=== PATIENT | female | born 1955 | race Caucasian/White ===

== ENCOUNTER → 2016-07-26 | Outpatient (CLI) | payer BC ==
--- NOTE | 2016-07-26 09:42 | DIAGNOSTIC IMAGING REPORT ---
(BARIUM SWALLOW) ESOPHAGUS CLINICAL HISTORY: K21.9 Gastroesophageal reflux [id number] COMPARISON STUDY: None. FLUOROSCOPY TIME: 1 minute.. FINDINGS: 22 fluoroscopic spot images were submitted. The patient swallowed barium without difficulty. The contours of the hypopharynx are within normal limits. The esophagus is normal in course, caliber, motility. No gastroesophageal reflux. No significant hiatus hernia. The barium tablet passed without difficulty. IMPRESSION: Unremarkable barium swallow. Electronically signed by: Raudel Roberts M.D. 07/26/2016 9:40 AM Dictated Date/Time: 07/26/2016 9:38 AM
== END | disposition home or self-care (01) ==
LOC: C.RAD 08:52
PROVIDERS: ATTEND Surgery
DX: K21.9 Gastro-esophageal reflux disease without esophagitis (principal)

== ENCOUNTER → 2017-03-14 | Outpatient (CLI) | payer BC ==
--- NOTE | 2017-03-15 15:32 | MAMMOGRAPHY REPORT ---
BILATERAL DIGITAL SCREENING MAMMOGRAM TOMOSYNTHESIS WITH CAD: 03/14/2017 CLINICAL HISTORY: Routine screening. Patient has no complaints. TECHNIQUE: Breast tomosynthesis in addition to standard 2D mammography was performed. Current study was also evaluated with a Computer Aided Detection (CAD) system. COMPARISON: Comparison is made to exams dated: 03/13/2016 mammogram, 03/08/2015 mammogram, 08/18/2013 ma mmogram - [facility], 03/06/2012 mammogram, 03/12/2011 mammogram, and 03/08/2010 mammo gram. BREAST COMPOSITION: The tissue of both breasts is almost entirely fatty. FINDINGS: No suspicious masses, calcifications, or areas of architectural distortion are noted in ei ther breast. There has been no significant interval change compared to prior exams. Scattered bilater al benign-appearing calcifications are not significantly changed. IMPRESSION: ACR BI-RADS CATEGORY 2: BENIGN There is no mammographic evidence of malignancy. A 1 year screening mammogram is recommended. The pa tient will receive written notification of the results. Approximately 10% of breast cancers are not detected with mammography. A negative mammographic report should not delay biopsy if a clinically suggestive mass is present. Marily Bourgeois M.D. /:03/14/2017 16:22:47 Retail Salesperson: Abby PLAZA(R)(M), [facility] letter sent: Normal 1/2 BI-RADS Code: ACR BI-RADS Category 2: Benign
== END | disposition home or self-care (01) ==
LOC: C.MAMM 14:43
PROVIDERS: ATTEND Internal Medicine
DX: Z12.31 Encounter for screening mammogram for malignant neoplasm of breast (principal)

== ENCOUNTER → 2017-04-17 | Outpatient (CLI) | payer BC ==
--- NOTE | 2017-04-17 14:55 | DIAGNOSTIC IMAGING REPORT ---
RIGHT THUMB 3 VIEWS HISTORY: M25.531 Wrist pain, acute, right FOOSH injury, having base of thumb pain COMPARISON: None. FINDINGS: There is no fracture or dislocation. Soft tissue swelling at the base of the thumb. Moderate osteoarthritis at the first carpometacarpal joint. No radiopaque foreign bodies. IMPRESSION: No fracture or dislocation within the right thumb. Electronically signed by: Raudel Roberts M.D. 04/17/2017 2:54 PM Dictated Date/Time: 04/17/2017 2:52 PM
--- NOTE | 2017-04-17 15:03 | DIAGNOSTIC IMAGING REPORT ---
R ELBOW MIN 3 VIEWS ROUTINE CLINICAL HISTORY: Right elbow pain following fall. COMPARISON: None FINDINGS: Anterior fat pad is slightly prominent. This suggests a right elbow joint effusion. There is an acute minimally displaced right radial neck fracture. No additional fractures are identified. IMPRESSION: Acute minimally displaced right radial neck fracture. Electronically signed by: Jet Marinelli M.D. 04/17/2017 3:02 PM Dictated Date/Time: 04/17/2017 3:01 PM
--- NOTE | 2017-04-17 15:05 | DIAGNOSTIC IMAGING REPORT ---
R WRIST MIN 3 VIEWS ROUTINE CLINICAL HISTORY: Right wrist pain following fall. COMPARISON: None FINDINGS: Alignment of the right carpal bones is anatomic. No acute fracture is identified. There is mild osteoarthritis of the radiocarpal articulation and moderate osteoarthritis of the right first carpometacarpal articulation. IMPRESSION: No acute fracture or dislocation of the right wrist. Electronically signed by: Jet Marinelli M.D. 04/17/2017 3:03 PM Dictated Date/Time: 04/17/2017 3:02 PM
== END | disposition home or self-care (01) ==
LOC: C.RADBC 14:27
PROVIDERS: ATTEND Physician Assistant
DX: M25.531 Pain in right wrist (principal); M79.641 Pain in right hand; S52.131A Displaced fracture of neck of right radius, initial encounter for closed fracture; W19.XXXA Unspecified fall, initial encounter

== ENCOUNTER → 2017-07-01 | Outpatient (CLI) | payer BC | END | disposition home or self-care (01) | LOC: C.MAMM 14:32 | PROVIDERS: ATTEND Nurse Practitioner Adult Health | DX: E55.9 Vitamin D deficiency, unspecified (principal); S52.131A Displaced fracture of neck of right radius, initial encounter for closed fracture; X58.XXXA Exposure to other specified factors, initial encounter ==

== ENCOUNTER → 2017-09-14 | Outpatient (CLI) | payer BC ==
[2017-09-14 13:26] LABS: BASO % 0.2 %; BASO ABS # 0.01 K/uL (0-0.2); EOS % 2.4 %; EOS ABS # 0.12 K/uL (0-0.5); HEMATOCRIT 39.7 % (37-47); LYMPH % 33.4 %; MEAN CELL VOLUME 85.6 fL (80-100); MEAN CORPUSCULAR HEMOGLOBIN 30.2 pg (25-34); MEAN CORPUSCULAR HGB CONC 35.3 g/dl (32-36); MEAN PLATELET VOLUME 9.3 fL (7.4-10.4); MONO % 7.3 %; MONO ABS # 0.37 K/uL (0.11-0.59); NEUT % 56.7 %; NEUT ABS # 2.89 K/uL (1.4-6.5); PLATELET COUNT 267 K/uL (130-400); RED CELL DISTRIBUTION WIDTH CV 13.5 % (11.5-14.5); RED CELL DISTRIBUTION WIDTH SD 41.6 fL (36.4-46.3); WHITE BLOOD COUNT 5.09 K/uL (4.8-10.8)
[2017-09-14 13:39] LABS: ALBUMIN 3.7 gm/dl (3.4-5.0); ALT/SGPT 24 U/L (12-78); AST/SGOT 14 U/L (15-37); BLOOD UREA NITROGEN 8 mg/dl (7-18); CALCIUM 9.1 mg/dl (8.5-10.1); CARBON DIOXIDE 26 mmol/L (21-32); CREATININE 0.82 mg/dl (0.60-1.20); GLUCOSE 93 mg/dl (70-99); LIPASE 123 U/L (73-393); SODIUM 139 mmol/L (136-145)
[2017-09-14 13:42] LABS: ALKALINE PHOSPHATASE 151 U/L (45-117); TOTAL PROTEIN 7.6 gm/dl (6.4-8.2)
== END | disposition home or self-care (01) ==
LOC: C.LAB1850 12:02
PROVIDERS: ATTEND Internal Medicine
DX: N39.41 Urge incontinence (principal); R10.84 Generalized abdominal pain; R10.811 Right upper quadrant abdominal tenderness

== ENCOUNTER → 2017-09-16 | Outpatient (CLI) | payer BC ==
[2017-09-16 12:45] LABS: ALBUMIN 3.7 gm/dl (3.4-5.0); TOTAL PROTEIN 7.5 gm/dl (6.4-8.2)
== END | disposition home or self-care (01) ==
LOC: C.LAB1850 10:03
PROVIDERS: ATTEND Nurse Practitioner Adult Health
DX: R74.8 Abnormal levels of other serum enzymes (principal); R73.01 Impaired fasting glucose; E55.9 Vitamin D deficiency, unspecified

== ENCOUNTER → 2017-09-19 | Outpatient (CLI) | payer BC ==
--- NOTE | 2017-09-19 08:41 | DIAGNOSTIC IMAGING REPORT ---
ABDOMINAL ULTRASOUND COMPLETE HISTORY: R10.84 Generalized abdominal pain of unknown [id number] Rig. COMPARISON: None. FINDINGS: Pancreas: The pancreatic tail is obscured by overlying bowel gas. The remaining portions of the pancreas are within normal limits. Liver: The liver is echogenic consistent with fatty change. Gallbladder: The gallbladder is surgically absent. CBD: 6 mm. Kidneys: The right kidney measures 11.0 cm and the left kidney measures 11.2 cm. Small cystic areas within the renal sinuses suggestive of peripelvic cysts. Spleen: Normal in size. Aorta: Normal in caliber. IVC: Patent. IMPRESSION: 1. Hepatic steatosis. 2. Prior cholecystectomy. Electronically signed by: Raudel Roberts M.D. 09/19/2017 8:40 AM Dictated Date/Time: 09/19/2017 8:36 AM
== END | disposition home or self-care (01) ==
LOC: C.ULTRBC 07:45
PROVIDERS: ATTEND Internal Medicine
DX: R17 Unspecified jaundice (principal); R10.84 Generalized abdominal pain; R10.811 Right upper quadrant abdominal tenderness; R74.8 Abnormal levels of other serum enzymes; K76.0 Fatty (change of) liver, not elsewhere classified

== ENCOUNTER → 2017-10-10 | Outpatient (CLI) | payer BC | END | disposition home or self-care (01) | LOC: C.LAB1850 08:59 | PROVIDERS: ATTEND Nurse Practitioner Adult Health | DX: R10.84 Generalized abdominal pain (principal); R74.8 Abnormal levels of other serum enzymes; R31.0 Gross hematuria ==

== ENCOUNTER 2018-12-16 07:51 | Inpatient (IN) ==
--- NOTE | 2018-11-17 15:59 | PAT Medication Instructions ---
Medication Instructions Date of Service November 17, 2018 Home Medications albuterol sulfate [ProAir HFA] 1 puff INHALATION Q6H PRN amlodipine 5 mg PO HS atorvastatin 10 mg PO HS cetirizine [Zyrtec] 10 mg PO HS cholecalciferol (vitamin D3) 4,000 unit PO QAM cyanocobalamin (vitamin B-12) 1,000 mcg PO QAM [Breo Ellipta] 1 inh INHALATION QAM ibuprofen [Advil] 200 mg PO QID PRN montelukast [Singulair] 10 mg PO PM omega 0-vfh-djg-fish oil [Fish Oil] 1 dose PO QAM omeprazole 20 mg PO QAM ranitidine HCl [Zantac] 2 tab PO HS L.acidoph-B.long-L.plant-B.lac 1 tab PO QAM coenzyme Q10 [CoQ-10] 100 mg PO HS doxycycline hyclate 100 mg PO BID prednisone 20 mg PO DIRECTED Continue as directed prednisone 20 mg PO DIRECTED ASK your surgeon for instructions ibuprofen [Advil] 200 mg PO QID PRN STOP taking 2 weeks before surgery omega 7-ftj-ajx-fish oil [Fish Oil] 1 dose PO QAM coenzyme Q10 [CoQ-10] 100 mg PO HS DO NOT take the morning of surgery cholecalciferol (vitamin D3) 4,000 unit PO QAM cyanocobalamin (vitamin B-12) 1,000 mcg PO QAM L.acidoph-B.long-L.plant-B.lac 1 tab PO QAM Take morning of surgery With a small sip of water, OTHERWISE NOTHING TO EAT OR DRINK AFTER MIDNIGHT: albuterol sulfate [ProAir HFA] 1 puff INHALATION Q6H PRN (if needed, and bring with you to the hospital) [Breo Ellipta] 1 inh INHALATION QAM omeprazole 20 mg PO QAM doxycycline hyclate 100 mg PO BID Take evening before surgery albuterol sulfate [ProAir HFA] 1 puff INHALATION Q6H PRN (if needed) amlodipine 5 mg PO HS atorvastatin 10 mg PO HS cetirizine [Zyrtec] 10 mg PO HS montelukast [Singulair] 10 mg PO PM ranitidine HCl [Zantac] 2 tab PO HS doxycycline hyclate 100 mg PO BID Other Notes If you have any questions please call us at [phone] or [phone] or [phone] or [phone]
--- NOTE | 2018-11-18 08:47 | Anesthesiology Consultation ---
Date of Service November 18, 2018 Assessment & Plan (1) Encounter for pre-operative examination: Chart Review Chart Review: Acceptable Risk for Surgery and Patient seen in Pre Admission Testing Teaching & Discussion Instructed NPO after midnight before surgery, except medications with 15 cc of water. Medication instructions provided according to the PAT guidelines. History Surgery Operation Date: 12/16/18 07:00 Proposed Procedures p Left Total Knee Replacement - He Nielsen MD Height/Weight Height: 5 ft 4 in Weight: 116.8 kg Allergies Allergy/AdvReac Type Severity Reaction Status Date / Time Penicillins Allergy Unknown Verified 11/12/18 08:08 erythromycin base AdvReac Dizziness Verified 11/12/18 08:08 Medications Home Medications Medication Instructions Recorded Confirmed Last Taken albuterol sulfate [ProAir HFA] 1 puff INHALATION Q6H PRN 09/09/18 11/12/18 Unknown amlodipine 5 mg PO HS 09/09/18 11/12/18 Unknown atorvastatin 10 mg PO HS 09/09/18 11/12/18 Unknown cetirizine [Zyrtec] 10 mg PO HS 09/09/18 11/12/18 Unknown cholecalciferol (vitamin D3) 4,000 unit PO QAM 09/09/18 11/12/18 Unknown [Vitamin D3] cyanocobalamin (vitamin B-12) 1,000 mcg PO QAM 09/09/18 11/12/18 Unknown [Vitamin B-12] fluticasone furoate-vilanterol 1 inh INHALATION QAM 09/09/18 11/12/18 Unknown [Breo Ellipta] ibuprofen [Advil] 200 mg PO QID PRN 09/09/18 11/12/18 Unknown montelukast [Singulair] 10 mg PO PM 09/09/18 11/12/18 Unknown omega 9-zib-wmk-fish oil [Fish Oil] 1 dose PO QAM 09/09/18 11/12/18 Unknown omeprazole 20 mg PO QAM 09/09/18 11/12/18 Unknown ranitidine HCl [Zantac] 2 tab PO HS 09/09/18 11/12/18 Unknown L.acidoph-B.long-L.plant-B.lac 1 tab PO QAM 11/12/18 11/12/18 Unknown [Probiotic Acidophilus Beads] coenzyme Q10 [CoQ-10] 100 mg PO HS 11/12/18 11/12/18 Unknown doxycycline hyclate 100 mg PO BID 11/12/18 11/12/18 Unknown prednisone 20 mg PO DIRECTED 11/12/18 11/12/18 Unknown Past Medical History Medical History Allergy-induced asthma RARELY USES PRN INH Bronchitis Has had for ~10 days, went to [facility]. On ABX and prednisione, finishing course tomorrow 11/19 - still has non productive cough. Pt advised to f/u with PCP if not improved, and f/u with surgeon if not resolved prior to surgery. Chronic back pain GERD (gastroesophageal reflux disease) Gilbert's syndrome Hyperlipidemia Hypertension Morbid obesity Osteoarthritis Sleep apnea Recent diagnosis, sleep study done 10/2018. Patient not yet set up with CPAP, PCP is following up. Exercise / Class Metabolic Activity III < 4 Walking/Shop/Light housework (+SOB (mild) with stairs, denies CP) Past Family History Family History Mother Family history of diabetes mellitus Uncle Family history of diabetes mellitus Past Surgical History Surgical History History of anesthesia reaction -SLOW TO WAKE -REPORTS SHE WOKE UP DURING HYSTERECTOMY History of appendectomy History of cholecystectomy History of colonoscopy History of dilatation and curettage History of esophagogastroduodenoscopy (EGD) History of hysterectomy ovaries remain History of total knee replacement RT Past Anesthesia History Other Reports being "slow to wake" but no h/o re-intubation or unanticipated admission. Had epidural and sedation with hysterectomy and has h/o awareness. History of PONV No Hx of PONV and Hx of Motion Sickness Social History Smoking Status: Never smoker Do You Dip or Chew Tobacco: No Hx Alcohol Use: No Hx Substance Use: No substance use type: does not use Review of Systems Pt denies any recent chest pain, shortness of breath, palpitations. +Bronchitis, currently starting to resolve, has non-productive cough, on ABX and steroid. Physical Exam Vital Signs BP: 113/77 P: 72bpm SPO2: 98% RA T: 98.7 F R: 18 Constitutional + obese ENMT Mouth: + dental restorations (many throughout mouth) and + small oral opening; no chipped teeth and no loose teeth Thyromental Distance: < 3.5 Finger Breadths (3) Mallampati Class: III Neck + thick neck; neck extension not limited Respiratory normal respiratory effort and + cough Auscultation: lungs clear to auscultation bilaterally Cardiovascular Rate/Rhythm: regular rate and regular rhythm Heart Sounds: no murmur Vessels: no carotid bruit Extremities: no edema Testing Electrocardiogram Date: 11/18/18 Findings: + NSR @ (69) Chest X-Ray Date: 11/18/18 IMPRESSION: Subsegmental atelectasis/scar within the lingula. Otherwise no acute findings. Laboratory Results 11/18/18 09:01 11/18/18 09:01 Blood Type A Negative 11/18/18 09: Antibody Screen NEGATIVE 11/18/18 09: PT 10.0 Seconds (9.0-12.0) 11/18/18 09: INR 1.0 (0.9-1.1) 11/18/18 09: APTT 21.8 Seconds (21.0-31.0) 11/18/18 09:01
--- NOTE | 2018-11-18 09:28 | XRay Report ---
XR chest Pre-admission PA/Lat CLINICAL HISTORY: Preoperative chest COMPARISON STUDY: 11/09/2015 FINDINGS: The heart is mildly enlarged. There is aortic tortuosity/ectasia. There are areas of linear scarring/atelectasis within the lingula. There is no failure.[ IMPRESSION: Subsegmental atelectasis/scar within the lingula. Otherwise no acute findings. Electronically signed by: Torrey Dalton M.D. 11/18/2018 9:27 AM
[2018-11-18 10:52] LABS: Hematocrit (blood only) 38.4 % (37-47); Hemoglobin 13.2 g/dL (12.0-16.0); Mean Corpuscular Hgb Conc 34.4 g/dL (32-36); Mean Corpuscular Volume 86.3 fL (80-100); Mean Platelet Volume 9.1 fL (7.4-10.4); Platelet Count 304 K/uL (130-400); RDW Coefficient of Variation 13.8 % (11.5-14.5); Red Blood Count 4.45 M/uL (4.2-5.4)
[2018-11-18 11:01] LABS: Blood Urea Nitrogen 16 mg/dl (7-18); C Reactive Protein < 0.29 mg/dl (0-0.29); Calcium 8.7 mg/dl (8.5-10.1); Carbon Dioxide 29 mmol/L (21-32); Chloride 110 mmol/L (98-107); Est GFR (African American) 81.6; Est GFR (Non-African American) 70.4; Glucose 80 mg/dl (70-99); Potassium 3.8 mmol/L (3.5-5.1); Sodium 143 mmol/L (136-145)
[2018-11-18 11:09] LABS: Partial Thromboplastin Ratio 0.8; Partial Thromboplastin Time 21.8 Seconds (21.0-31.0)
[2018-11-18 11:16] LABS: Basophils # (auto) 0.02 K/uL (0-0.2); Basophils % (auto) 0.3 %; Eosinophils # (auto) 0.07 K/uL (0-0.5); Eosinophils % (auto) 0.9 %; Immature Granulocytes # (auto) 0.07 K/uL (0.00-0.02); Immature Granulocytes % (auto) 0.9 %; Lymphocytes # (auto) 4.12 K/uL (1.2-3.4); Lymphocytes % (auto) 52.2 %; Monocytes # (auto) 0.61 K/uL (0.11-0.59); Monocytes % (auto) 7.7 %; Neutrophils # (auto) 3.01 K/uL (1.4-6.5)
--- NOTE | 2018-12-11 22:25 | History and Physical Report ---
DATE OF ADMISSION: 12/16/2018 CHIEF COMPLAINT: Left knee pain and discomfort. HISTORY OF PRESENT ILLNESS: She is a 63-year-old female who presents for surgical treatment of her left knee. We had actually scheduled her for knee replacement in the past, but it got rescheduled largely related to a weight issue. She has been to extensive conservative treatment in respect to her left knee. She has been through diabetic counseling and weight loss attempts. She has struggled with this due to her mobility issues. She is limited by her left knee pain. It is global pain. The more she walks, the more it hurts. She limps more and more as the day goes on. She has nighttime pain. She would like to proceed with surgical treatment. Of note, the patient had right knee replacement done in [place] in 2012. PAST MEDICAL HISTORY: Significant for, 1. Elevated cholesterol. 2. Hypertension. 3. Allergy induced asthma. 4. Sleep apnea. 5. Gastroesophageal reflux disease. 6. Obesity with BMI 44. 7. Low back pain/sciatica. PAST SURGICAL HISTORY: 1. Hysterectomy in 1997. 2. Cholecystectomy. 3. Right knee replacement done in [place] in 2012. ALLERGIES: MYCINS WHICH CAUSED HER TO BE "WOOZY." CURRENT MEDICINES: Include, 1. Vitamin D. 2. Fish oil. 3. Vitamin B12. 4. Probiotics. 5. Omeprazole. 6. Breo. 7. Zyrtec. 8. Singulair. 9. Atorvastatin. 10. Zantac. 11. Coenzyme Q. 12. Amlodipine. SOCIAL HISTORY: This patient is a 63-year-old female who lives by herself. She does not smoke. FAMILY HISTORY: Noncontributory. REVIEW OF HISTORY: Negative for diabetes, neurologic problems, vascular problems or bleeding disorders. No chest pain or shortness of breath. No history of deep venous thrombosis or pulmonary embolism. PHYSICAL EXAMINATION: GENERAL: Reveals a pleasant middle-aged female, looks to be in reasonably good health. HEENT: Benign. NECK: Supple. No lymphadenopathy. LUNGS: Clear to auscultation. HEART: Regular rate and rhythm. ABDOMEN: Soft, nontender and nondistended. EXTREMITIES: Grossly neurovascularly intact except as follows. Examination of the left knee reveals the patient walks with antalgic gait. She limps on the left side. She has got varus alignment to her knee. Moderate soft tissue envelope. She is tender over the medial joint line. Range of motion is 5 degrees short of full extension and 120 degrees of flexion. No instability. No pain with hip motion. X-RAYS: X-rays of the left knee reviewed. Show advanced medial compartment DJD. She has complete loss of medial joint space. She has subchondral sclerosis. She has osteophytes of medial femoral condyle and medial tibial plateau. The right knee replacement looks to be in pretty good position. ASSESSMENT: This patient is a 63-year-old female 6 weeks out from right knee replacement done in [place] with advanced left knee degenerative joint disease. She has failed conservative treatment and would like to have her left knee replaced. PLAN: The patient will be taken to the operating room for a left total knee replacement. The risks and benefits of this procedure were explained to the patient including but not limited to deep venous thrombosis, pulmonary embolism, , infection, neurological injury, vascular injury, bleeding problem, pain, limited range of motion, stiffness, failure to relieve symptoms, incomplete relief of symptoms, need for further surgery in the future, fracture, leg length inequality, nerve palsy, etc. The patient understands and desires to proceed. Informed consent was obtained. As far as discharge plans, she is a little bit up in the air what to do. She went to rehab when she was in [place] and had this done 6 years ago. We will see how therapy goes postoperatively. She lives by herself, so she will certainly need some help.
[~2018-12-16 07:51] MED LIST: ACETAMINOPHEN 500 MG TAB PO SCH; BUPIVACAINE 0.5 % 5 MG/1 ML PF 10ML VIAL ONE; BUPIVACAINE LIPOSOME/PF 266 MG, BUPIVACAINE/EPINEPHRINE 50 ML, SODIUM CHLORIDE 0.9% 30 ... INFIL SCH; CEFAZOLIN 2000MG 2,000 MG/15 ML SYR IV SCH; FAMOTIDINE 20 MG TAB PO SCH; GABAPENTIN 300 MG x 2 PO SCH; LR 500ML BOLUS, THEN 15ML/HR IV SCH; LR 60ML/HR IV SCH; METOCLOPRAMIDE HCL 10 MG TABLET PO SCH; ROPIVACAINE 0.5% 5 MG/ML 30 ML VIAL ONE; SCOPOLAMINE 1.5 MG TDSY TD SCH; TRANEXAMIC ACID 1,000 MG **IV Intra-op IV SCH; [UNRECOGNIZED DRUG - REMARK] SCH
[2018-12-16] MEDS ORDERED: fentaNYL citrate 100 MCG/2 ML VIAL ONE (08:14)
[2018-12-16] MEDS ORDERED: MIDAZOLAM HCL 1 MG/ML 2ML VIAL ONE ×3 (08:14→11:17)
--- NOTE | 2018-12-16 08:42 | History & Physical Bridge Note ---
Date of Service December 16, 2018 History & Physical Bridge Note I have examined the patient, reviewed the History & Physical and in the interval since the performance of the History & Physical I have noted the following changes of clinical significance: no changes noted
[2018-12-16] MEDS ORDERED: BACITRACIN INJ 50,000 UNIT VIAL ONE (09:28)
[2018-12-16] MEDS ORDERED: EPINEPHrine INJ 1 MG/ML AMP ONE (09:28)
[2018-12-16] MEDS ORDERED: SODIUM CHLORIDE 0.9% PF 50 ML VIAL ONE (09:28)
[2018-12-16] MEDS ORDERED: BUPIVACAINE 0.25% 30 ML VIAL ONE (09:28)
[2018-12-16] MEDS ORDERED: BUPIVACAINE LIPOSOME 1.3% 266 MG/20 ML VIAL ONE (09:28)
[2018-12-16] MEDS ORDERED: ePHEDrine sulfate 50 MG/ML AMP IV PRN (09:36)
[2018-12-16] MEDS ORDERED: ATROPINE SULFATE 0.1 MG/ML 10ML SYR IV PRN (09:36)
[2018-12-16] MEDS ORDERED: ONDANSETRON INJ 2 MG/ML 2 ML VIAL IV PRN ×2 (09:36→13:47)
[2018-12-16] MEDS ORDERED: fentaNYL citrate 100 MCG/2 ML VIAL IV PRN (09:36)
--- NOTE | 2018-12-16 12:17 | Post Operative Brief Note ---
Immediate Post Op Note v1 Date of Surgery December 16, 2018 Pre & Post Diagnosis Operation Date: 12/16/18 10:40 Pre-Op Diagnosis: Left Knee Degenerative Joint Disease Post-Op Diagnosis: Left Knee Degenerative Joint Disease Procedure Operation Date: 12/16/18 10:40 Actual Procedures p Left Total Knee Arthroplasty (Left) - He Nielsen MD Surgeon He Nielsen MD [employer] Johan, PAC Estimated Blood Loss 50 Findings Consistent with Post-Op Diagnosis Fluids 1500 cc Specimens Left Knee Drains Aparicio Catheter (16 danish) Anesthesia Type Spinal MAC Complications none Disposition Accompanied Patient To Recovery: No Disposition: Recovery Room
--- NOTE | 2018-12-16 12:51 | XRay Report ---
XR knee LT 2V routine CLINICAL HISTORY: 63 years-old Female presenting with Surgical Post Op. TECHNIQUE: Frontal and crosstable lateral views of the left knee were obtained. COMPARISON: 04/03/2018. FINDINGS: Interval postsurgical change of total left knee arthroplasty with patellar resurfacing. Expected intr a-articular and soft tissue emphysema. Overlying skin lupillo. No periprosthetic fracture or lucency. No malalignment. Suspected underlying osteopenia. IMPRESSION: Expected postsurgical appearance status post total left knee arthroplasty with patellar resurfacing. Electronically signed by: Isma Wilson M.D. 12/16/2018 12:49 PM
--- NOTE | 2018-12-16 12:58 | Anesthesiology Progress Note ---
Date of Service December 16, 2018 Anesthesia Post Procedure Vital Signs Vital Signs: Temp Pulse Resp BP Pulse Ox 12/16/18 12:45 75 14 125/66 100 12/16/18 12:35 72 16 117/64 100 12/16/18 12:26 97.5 F L 75 19 125/76 100 12/16/18 08:25 98.4 F 73 17 138/82 97 Pain Intensity Left Knee: Pain Intensity: 0 Transfer of Care Handoff Completed per policy Notes Mental Status: alert / awake / arousable and participated in evaluation Patient Amnestic to Procedure: Yes Nausea / Vomiting: adequately controlled Pain: adequately controlled Airway Patency, RR, SpO2: stable & adequate BP & HR: stable & adequate Hydration State: stable & adequate Neuraxial Anesthesia: was administered and sensory block is resolving Anesthetic Complications: no major complications apparent and Pt Satisfied with anesthetic care
[2018-12-16] MEDS ORDERED: ALUMINUM/MAGNESIUM SUSP 30 ML UDC PO PRN (13:47)
[2018-12-16] MEDS ORDERED: METOCLOPRAMIDE HCL INJ 5 MG/ML 2 ML VIAL IV PRN (13:47)
[2018-12-16] MEDS ORDERED: DiphenhydrAMINE HCL 50 MG/ML VIAL IV PRN (13:47)
[2018-12-16] MEDS ORDERED: HYDROmorphone INJ 0.5 MG/0.5 ML SYR IV PRN (13:47)
[2018-12-16] MEDS ORDERED: MAGNESIUM HYDROXIDE SUSP 30 ML UDC PO PRN (13:47)
[2018-12-16] MEDS ORDERED: BISACODYL 10 MG SUPP PR PRN (13:47)
[2018-12-16] MEDS ORDERED: NALOXONE HCL 0.4 MG/1 ML VIAL/CARP IV PRN (13:47)
[2018-12-16] MEDS ORDERED: ALBUTEROL HFA 8 GM INHALER INH PRN (14:15)
[2018-12-16] MEDS: ACETAMINOPHEN 500 MG TAB PO SCH ×2 (15:28→21:23)
[2018-12-16] MEDS: CHECK SCOPOLAMINE PATCH PLACEMENT SCH (15:28)
[2018-12-16] MEDS: KETOROLAC 30 MG/ML VIAL IV SCH ×2 (15:28→21:23)
--- NOTE | 2018-12-16 16:33 | Progress Note ---
DATE: 12/16/2018 SUBJECTIVE: A 63-year-old female postop from a left knee replacement. She is just starting to have some pain in her leg. Denies any chest pain or shortness of breath. Not feeling dizzy or lightheaded. OBJECTIVE: VITAL SIGNS: Temperature 36.3. Vital signs stable. GENERAL: Physical examination shows a pleasant, middle-aged female. She is lying in bed. Just looks a little bit groggy from the surgery. LUNGS: Clear to auscultation. HEART: Regular rate and rhythm. ABDOMEN: Soft, nontender, nondistended. EXTREMITIES: Grossly neurovascularly intact except as follows: Examination of the left lower extremity reveals the leg to be well aligned. She can dorsiflex and plantarflex her foot appropriately. She is neurologically intact. She has got brisk capillary refill. X-RAYS: X-rays of the left knee from recovery room reviewed. It shows left cemented posterior stabilized total knee arthroplasty. Components looked to be in good position. No signs of problems. ASSESSMENT: A 63-year-old female postop from a left knee replacement, doing pretty well. Pain is reasonably well controlled. Just starting to have pain in her leg. She is neurologically intact. PLAN: 1. DVT prophylaxis including thigh-high TEDs, SCDs, and aspirin twice a day. 2. PT/OT. Weight bear as tolerated. Left total knee protocol. 3. Pain control, doing okay with current pain regimen. She is just starting to have more pain. We will have to adjust meds as needed. 4. IV antibiotics x24 hours. 5. Discharge plans: She is hoping to be discharged to home, but she lives alone. I think it is highly likely she is going to need a rehab or [facility] stay. We will see how she does over the next 24-48 hours.
[2018-12-16] MEDS: ASCORBIC ACID 500 MG TAB PO SCH (18:00)
[2018-12-16] MEDS: FERROUS GLUCONATE 324 MG TAB PO SCH (18:00)
[2018-12-16] MEDS: SODIUM CHLORIDE 0.9% 1000ML 1,000 ML IV SCH (18:05)
[2018-12-16] MEDS: CEFAZOLIN 2000MG 2,000 MG/15 ML SYR IV SCH (18:05)
[2018-12-16] MEDS ORDERED: TRANEXAMIC ACID 1,000 MG in 0.9 % SODIUM CHLORIDE 100 ML IV SCH (18:30)
[2018-12-16] MEDS: TAPENTADOL HCL ER 50 MG TABCR PO SCH (20:15)
[2018-12-16] MEDS: AMLODIPINE BESYLATE 5 MG TAB PO SCH (20:15)
[2018-12-16] MEDS: ASPIRIN 81 MG ECTAB PO SCH (20:15)
[2018-12-16] MEDS: DOCUSATE SODIUM 100 MG CAP PO SCH (20:15)
[2018-12-16] MEDS: MONTELUKAST SODIUM 10 MG TABLET PO SCH (20:16)
[2018-12-16] MEDS: SENNA 8.6 MG TAB PO SCH (20:16)
[2018-12-16] MEDS: ATORVASTATIN 10 MG TAB PO SCH (20:16)
[2018-12-16] MEDS: CETIRIZINE HCL 10 MG TABLET PO SCH (20:16)
[2018-12-16] MEDS ORDERED: NON-FORMULARY MEDICATION (Coenzyme Q10 [Coq-10] 100 MG) PO SCH (21:00)
--- NOTE | 2018-12-16 22:12 | Operative Report ---
DATE OF OPERATION: 12/16/2018 SURGEON: He Nielsen MD PEARL DIGGER: ROBYN Louie PREOPERATIVE DIAGNOSIS: Left knee degenerative joint disease. POSTOPERATIVE DIAGNOSIS: Left knee degenerative joint disease. PROCEDURE PERFORMED: Left cemented posterior stabilized total knee arthroplasty. COMPLICATIONS: None. ESTIMATED BLOOD LOSS: 50 mL. FLUID REPLACEMENT: 1500 mL crystalloid fluid replacement. TOURNIQUET TIME: 66 minutes at 300 mmHg. ANESTHESIA: Spinal with adductor canal block. DRAINS: None. SPECIMENS: Left knee sent for pathology. OPERATIVE INDICATIONS: The patient is a 63-year-old female with a long history of knee problems. She has been through extensive conservative treatment in the past. She had a right knee replaced in [facility] in 2012. Over the years, she developed increased pain and discomfort in her left knee. She has been through extensive conservative treatment including weight loss program. She failed conservative care and elected to proceed with total knee arthroplasty. OPERATIVE FINDINGS: Operative findings revealed advanced left knee DJD. She had extensive grade 4 [id number]-va-ipah disease of the medial and patellofemoral compartments. She had a varus deformity to her knee. Very large soft tissue envelope. OPERATIVE IMPLANTS: Operative implants consisted of: 1. Biomet Vanguard size 62.5 left posterior stabilized femoral component. 2. Biomet size 67 tibial tray. 3. A 10 mm posterior stabilized polyethylene insert. 4. A 28 x 8 all poly patella. OPERATIVE PROCEDURE: The patient taken to the operating room, identified and placed on the operating table in supine position. All contact areas were appropriately padded. IV antibiotics provided by anesthesia team. A spinal anesthetic and adductor canal block had been provided in the holding area. Aparicio catheter was placed in sterile fashion. A left thigh tourniquet was then placed and left lower extremity was then prepped and draped in usual sterile fashion. The left leg was elevated and exsanguinated with Esmarch and tourniquet placed at 300 mmHg. An anterior approach to the left knee was then performed through a longitudinal incision centered over the patella. Sharp dissection was carried through the subcutaneous tissue down to the level of the extensor mechanism. A medial parapatellar arthrotomy incision was made. Some subperiosteal dissection was carried out medially. The fat pad was resected from beneath the patellar tendon. The lateral patellofemoral ligament was released. The patella was everted and knee was flexed. The osteophytes were taken off the distal femur. The ACL and PCL were then released from the distal femur. The tibia subluxated anteriorly. The external tibial alignment jig was then placed in the anterior face of the tibia and adjusted 14 mm medially. Proximal tibial cut was made to remove a millimeter bone from the most deficient aspect of the medial tibial plateau. Some osteophytes were taken off medial and posteromedially. Tibia sized to a size 67. Attention was then drawn to the femur. The distal femur was entered with a sharp drill bit. Intramedullary canal was suctioned. A left 5-degree valgus cutting guide was placed. Distal femoral cutting block was pinned in place. Distal femoral cut was made to take an additional 3 mm of bone off the distal femur. The femur was then sized to a size 62.5. We downsize this slightly. The AP cutting block was pinned parallel to the epicondylar axis, which was 4 degrees of external rotation. The anterior cut, anterior chamfer, posterior cut, posterior chamfer cuts were made. Box cutting guide was placed and adjusted slightly lateral and box cut was made. The knee was flexed. The remnants of the medial and lateral menisci were excised. The osteophytes were taken off the posterior aspect of the femur. Trial femoral component was placed. Tibial tray was pinned in maximum external rotation and drill and stem punch were used to create defect in proximal tibia for the tibial tray. The knee was then trialed and the 10 mm insert fit most appropriately. Attention was then drawn to the patella. The patella was cleaned of all soft tissue. Patella thickness measured 18 mm in thickness, was cut down to 12. It was sized to a size 28 patella. Lug holes were drilled for a 28 patella. Lateral osteophyte was removed. Patella button was placed. Knee was taken through range of motion and the patella tracked nicely with no thumbs test. Attention was then drawn toward placing the permanent components. All trial components were removed. Bone plug was placed in the distal femur to limit blood loss. A double batch of Palacos G cement was mixed. A Biomet Vanguard size 62.5 left posterior stabilized femoral component, Biomet size 67 tibial tray, 10 mm posterior stabilized polyethylene insert, and a 28 x 8 all poly patella were then cemented in place. Knee was brought out into full extension until cement hardened. A final cement check was then performed. Pericapsular tissues were injected with a total of 100 mL of a combination of 20 mL of Exparel, 30 mL of normal saline, 50 mL of 0.25% Marcaine with epinephrine. The patient did receive 1 gram of tranexamic acid. The tourniquet was then let down for a tourniquet time of 66 minutes. Hemostasis was assured using electrocautery. The extensor mechanism was then closed with a combination of #1 PDS suture and #1 Vicryl suture in a [id number] fashion. Extensor mechanism was checked and found to be intact. The subcutaneous tissue was then closed with #2 Dexon suture in buried interrupted fashion. Skin was closed with skin lupillo. Leg was then cleaned and dried and a sterile dressing of Xeroform, 4 x 4's, sterile cast padding and Mike bandage were applied. The patient then transferred to the recovery room in stable condition. The patient tolerated the procedure well with no complications. All needle and sponge counts were correct at the end of the operation. I attest to the content of the Intraoperative Record and any orders documented therein. Any exception s are noted below.
[2018-12-17] MEDS: CHECK SCOPOLAMINE PATCH PLACEMENT SCH (01:37)
[2018-12-17] MEDS: CEFAZOLIN 2000MG 2,000 MG/15 ML SYR IV SCH (01:37)
[2018-12-17] MEDS: KETOROLAC 30 MG/ML VIAL IV SCH ×4 (03:49→21:43)
[2018-12-17] MEDS: ACETAMINOPHEN 500 MG TAB PO SCH ×3 (05:55→21:43)
[2018-12-17 06:29] LABS: Hematocrit (blood only) 34.1 % (37-47); Hemoglobin 11.9 g/dL (12.0-16.0); Mean Corpuscular Hgb Conc 34.9 g/dL (32-36); Mean Corpuscular Volume 85.7 fL (80-100); Mean Platelet Volume 9.1 fL (7.4-10.4); Platelet Count 206 K/uL (130-400); RDW Coefficient of Variation 13.4 % (11.5-14.5); RDW Standard Deviation 41.8 fL (36.4-46.3); Red Blood Count 3.98 M/uL (4.2-5.4); White Blood Count 5.77 K/uL (4.8-10.8)
[2018-12-17] MEDS: SODIUM CHLORIDE 0.9% 1000ML 1,000 ML IV SCH (06:34)
[2018-12-17 07:02] LABS: BUN Creatinine Ratio 14.8 (10-20); Calcium 8.6 mg/dl (8.5-10.1); Creatinine Clr Calc Pharmacy 101.5 ml/min; Est GFR (African American) 106.1; Est GFR (Non-African American) 91.6
[2018-12-17] MEDS: LACTOBACILLUS ACIDOPHILUS (FLORANEX) TAB PO SCH (08:39)
[2018-12-17] MEDS: CYANOCOBALAMIN 500 MCG TABLET (VITAMIN B-12) PO SCH (08:39)
[2018-12-17] MEDS: OMEGA-3 (PURIFIED FISH OIL) 1 GM CAP PO SCH (08:39)
[2018-12-17] MEDS: MULTIVITAMIN TAB PO SCH (08:40)
[2018-12-17] MEDS: DOCUSATE SODIUM 100 MG CAP PO SCH ×2 (08:40→20:45)
[2018-12-17] MEDS: PANTOprazole 40 MG TAB PO SCH (08:40)
[2018-12-17] MEDS: FERROUS GLUCONATE 324 MG TAB PO SCH ×2 (08:40→17:59)
[2018-12-17] MEDS: ASPIRIN 81 MG ECTAB PO SCH ×2 (08:40→20:45)
[2018-12-17] MEDS: CHOLECALCIFEROL 1,000 UNITS TAB PO SCH (08:41)
[2018-12-17] MEDS: ASCORBIC ACID 500 MG TAB PO SCH ×2 (08:41→18:00)
[2018-12-17] MEDS: TAPENTADOL HCL ER 50 MG TABCR PO SCH ×2 (08:45→20:45)
[2018-12-17] MEDS: FLUTICASONE/VILANTEROL INHALER INH SCH (08:47)
--- NOTE | 2018-12-17 10:04 | Progress Note ---
DATE: 12/17/2018 SUBJECTIVE: A 63-year-old female postop day 1 from left knee replacement. She is doing pretty well. The pain seems to be controlled. Had little nausea this morning but doing better. No chest pain or shortness of breath. Not feeling dizzy or lightheaded. OBJECTIVE: VITAL SIGNS: Temperature 36.7. Vital signs stable. PHYSICAL EXAMINATION: GENERAL: Reveals a pleasant, middle-aged female. I visited her when she was walking in the hallway with the therapist. She is getting around pretty well. Her dressing is clean, dry, and intact. Leg is well aligned. She can dorsiflex and plantarflex her foot appropriately. She is neurologically intact. LABORATORY DATA: Hemoglobin is 11.9. Hematocrit 34.1. Electrolytes are stable. ASSESSMENT: A 63-year-old female postop day 1 from left knee replacement, doing reasonably well. The pain seems to be controlled. She is getting around reasonably well. PLAN: 1. DVT prophylaxis including thigh-high TEDs, SCDs, and aspirin twice a day. 2. PT/OT. Weight bear as tolerated. Left total knee protocol. 3. Pain control, doing okay with current pain regimen. 4. Disposition: She is still trying to decide whether she wants to go to rehab or home. She is going to see how she does with therapy today. As it stands now, likely to go home with some home health.
[2018-12-17] MEDS: SENNA 8.6 MG TAB PO SCH (20:45)
[2018-12-17] MEDS: AMLODIPINE BESYLATE 5 MG TAB PO SCH (20:45)
[2018-12-17] MEDS: MONTELUKAST SODIUM 10 MG TABLET PO SCH (20:45)
[2018-12-17] MEDS: CETIRIZINE HCL 10 MG TABLET PO SCH (20:45)
[2018-12-17] MEDS: ATORVASTATIN 10 MG TAB PO SCH (20:46)
[2018-12-18] MEDS: KETOROLAC 30 MG/ML VIAL IV SCH ×2 (03:29→10:10)
[2018-12-18] MEDS: ACETAMINOPHEN 500 MG TAB PO SCH ×2 (06:02→13:22)
[2018-12-18] MEDS: OMEGA-3 (PURIFIED FISH OIL) 1 GM CAP PO SCH (07:22)
[2018-12-18] MEDS: FLUTICASONE/VILANTEROL INHALER INH SCH (07:22)
[2018-12-18] MEDS: LACTOBACILLUS ACIDOPHILUS (FLORANEX) TAB PO SCH (07:22)
[2018-12-18] MEDS: ASCORBIC ACID 500 MG TAB PO SCH ×2 (07:22→16:55)
[2018-12-18] MEDS: FERROUS GLUCONATE 324 MG TAB PO SCH ×2 (07:22→16:55)
[2018-12-18] MEDS: PANTOprazole 40 MG TAB PO SCH (07:23)
[2018-12-18] MEDS: DOCUSATE SODIUM 100 MG CAP PO SCH (07:23)
[2018-12-18] MEDS: CHOLECALCIFEROL 1,000 UNITS TAB PO SCH (07:23)
[2018-12-18] MEDS: ASPIRIN 81 MG ECTAB PO SCH (07:23)
[2018-12-18] MEDS: CYANOCOBALAMIN 500 MCG TABLET (VITAMIN B-12) PO SCH (07:23)
[2018-12-18] MEDS: MULTIVITAMIN TAB PO SCH (07:23)
[2018-12-18] MEDS: OXYCODONE HCL IR 5 MG TAB (IMMEDIATE RELEASE) PO PRN ×3 (07:25→17:46)
--- NOTE | 2018-12-18 08:05 | Progress Note ---
DATE: 12/18/2018 SUBJECTIVE: A 63-year-old white female postop day 2 from a left knee replacement. She is doing okay. Pain is controlled this morning. Therapy has been a bit difficult. She is able to get around okay, but very slow. OBJECTIVE: VITAL SIGNS: Temperature 36.8. Vital signs stable. GENERAL: Physical examination shows a pleasant, middle-aged female. She is sitting up in her bedside chair eating breakfast, looks reasonably comfortable. EXTREMITIES: Examination of the left leg reveals the dressing to be clean, dry and intact. Calf is soft and supple. She is neurologically intact. ASSESSMENT: A 63-year-old white female postop day 2 from left knee replacement, doing reasonably well. Pain is controlled. A very difficult social situation, she lives by herself. PLAN: 1. DVT prophylaxis including thigh-high TEDs, SCDs, and aspirin twice a day. 2. PT/OT. Weight bear as tolerated. Left total knee protocol. 3. Pain control, doing pretty well with current pain regimen. 4. Disposition: We had a discussion this morning. I really think she would benefit from a rehab or intermediate facility stay. I think it could be risky for her to go home by herself at this point. We will have social service look into this.
[2018-12-18] MEDS: TAPENTADOL HCL ER 50 MG TABCR PO SCH (08:34)
--- NOTE | 2018-12-24 07:21 | Discharge Summary ---
ADMITTING PHYSICIAN AND SURGEON: He Nielsen MD ADMITTING DIAGNOSIS: Left knee degenerative joint disease. SURGERY PERFORMED: Left total knee arthroplasty. SECONDARY DIAGNOSES: Elevated cholesterol, hypertension, allergy-induced Asthma, sleep apnea, gastroesophageal reflux disease, obesity, low back pain, sciatica. CONSULTS: None obtained. HISTORY AND PHYSICAL EXAMINATION: Well documented in the patient's chart. HOSPITAL COURSE: The patient was admitted on 12/16/2018, underwent total knee arthroplasty, and tolerated the procedure well. There were no complications. She was transferred to the PACU postoperatively and later to the orthopedic floor for further care. She was given Ancef for antibiotic prophylaxis, ANAI stockings, SCDs and aspirin for DVT prophylaxis. Hemoglobin, hematocrit and vital signs were monitored during her hospital stay and remained stable. She did not require any blood transfusions. There were no complications. By postoperative day 2, she was tolerating a regular diet, pain was controlled with oral pain medicine. She was participating in physical therapy. On postop day 2, she was discharged home, set up with home health services. She was given printed discharge instructions as well as new prescriptions for extra-strength Tylenol, aspirin, Zofran, and oxycodone. Continue her home medicines. Continue physical therapy, ANAI stockings. Follow up approximately 2 weeks postop or sooner if there are any problems or concerns.
== END 2018-12-18 18:37 | disposition home health service (06) | DRG 470 ==
LOC: ASU 07:51 → 3E 12:22